=== PATIENT | female | born 1980 | race Caucasian/White ===

== ENCOUNTER 2019-01-04 16:04 | Emergency (ER) | payer OTHER ==
[~2019-01-04] VITALS: Ht 157.5 cm; Wt 54.4 kg
[2019-01-05] MEDS ORDERED: CARAFATE1 GM/10 ML (21:08)
== END 2019-01-04 22:36 | disposition home or self-care (01) ==
LOC: ER 16:04
DX: R10.11 Right upper quadrant pain (principal)

== ENCOUNTER 2019-01-05 20:59 | Emergency (ER) | payer OTHER ==
[~2019-01-05] VITALS: Ht 154.9 cm; Wt 54.4 kg
[2019-01-05] MEDS ORDERED: CARAFATE1 GM/10 ML (21:08)
[2019-01-06] MEDS ORDERED: LEVSIN/SL0.125 MG SL (03:54)
[2019-01-06] MEDS ORDERED: KETO10TA2 PO (03:55)
[2019-01-07] MEDS ORDERED: PERCOCET 5-3251 EACH PO (08:55)
== END 2019-01-06 04:10 | disposition home or self-care (01) ==
LOC: ER 20:59
DX: R10.11 Right upper quadrant pain (principal)

== ENCOUNTER 2019-01-06 10:40 | Inpatient (IN) | payer OTHER ==
[~2019-01-06] VITALS: Ht 152.4 cm; Wt 54.4 kg
[~2019-01-06 10:40] MED LIST: CARAFATE1 GM/10 ML; KETO10TA2 PO; LEVSIN/SL0.125 MG SL
--- NOTE | 2019-01-06 12:10 | NUR ---
SE RECIBE PACIENTE EN AMBULANCIA POR MIS L ARIAS RN QUIEN LE REALIZA TRIAGE REFIERE PACEINTE CON DOLOR ABDOMINAL DESDE EL VIERNES,ACOMPANADA DE FAMILIAR MIS ARIAS RN CANALIZA Y CECIL MUETRAS [place] ISACC ORDEN MEDICA CON MEDIDAS ASEPTICAS CORRESPONDIENTES.SE MONITOREA POR CAMBIOS.
[2019-01-07] MEDS ORDERED: PERCOCET 5-3251 EACH PO (08:55)
== END 2019-01-07 13:03 | disposition home or self-care (01) | DRG 343 ==
LOC: ER 10:40 → SEC-K 12:09 → O/R 15:29 → SURH 19:55
PROVIDERS: ADMIT Surgery
PROC: 0DTJ4ZZ Resection of Appendix, Percutaneous Endoscopic Approach (ICD-10-PCS; principal; 2019-01-06 15:00)
DX: K35.890 Other acute appendicitis without perforation or gangrene (principal)

== ENCOUNTER 2019-12-02 11:25 | Outpatient (CLI) | payer OTHER ==
[~2019-12-02 11:25] MED LIST changes: +PERCOCET 5-3251 EACH PO
== END 2019-12-02 11:26 | disposition home or self-care (01) ==
LOC: SONOGRAMA 11:25
DX: R10.10 Upper abdominal pain, unspecified (principal)

== ENCOUNTER 2022-03-21 10:31 | Outpatient (CLI) | payer OTHER | END 2022-03-21 10:47 | disposition home or self-care (01) | LOC: SONOGRAMA 10:31 | PROVIDERS: ATTEND Obstetrics & Gynecology Maternal & Fetal Medicine | DX: N84.0 Polyp of corpus uteri (principal) ==

== ENCOUNTER 2023-04-06 09:45 | Inpatient (IN) | payer OTHER ==
[~2023-04-06] VITALS: Ht 157.5 cm; Wt 61.2 kg
== END 2023-04-16 08:57 | disposition home or self-care (01) | DRG 743 ==
LOC: OB/GYN 04-15 07:19 → O/R 04-15 07:19 → OB/GYN 04-15 09:45
PROVIDERS: ADMIT Obstetrics & Gynecology; ATTEND Obstetrics & Gynecology
PROC: 0UT74ZZ Resection of Bilateral Fallopian Tubes, Percutaneous Endoscopic Approach (ICD-10-PCS; 2023-04-15)
PROC: 0UT94ZZ Resection of Uterus, Percutaneous Endoscopic Approach (ICD-10-PCS; principal; 2023-04-15 10:15)
DX: D25.9 Leiomyoma of uterus, unspecified (principal); Z20.822 Contact with and (suspected) exposure to COVID-19

== ENCOUNTER 2023-04-06 10:09 | Outpatient (CLI) | payer OTHER | END 2023-04-06 10:27 | disposition home or self-care (01) | LOC: MAMO-SONO 10:09 | PROVIDERS: ATTEND Obstetrics & Gynecology Maternal & Fetal Medicine | DX: Z12.31 Encounter for screening mammogram for malignant neoplasm of breast (principal); N63.0 Unspecified lump in unspecified breast; N64.4 Mastodynia; N60.11 Diffuse cystic mastopathy of right breast ==